=== PATIENT | male | born 1985 | race Caucasian/White ===

== ENCOUNTER 2020-08-01 09:48 | Emergency (ER) | payer OTHER ==
[~2020-08-01] VITALS: Ht 182.9 cm; Wt 97.5 kg
[2020-08-01] MEDS ORDERED: PAXIL30 MG PO (10:00)
[2020-08-01] MEDS ORDERED: TRAZODONE HCL50 MG PO (10:01)
[2020-08-01] MEDS ORDERED: NORCO 5-325 TA1 EACH PO (11:50)
--- NOTE | 2020-08-01 13:13 | EKG ---
[facility] [address] [facility] [place] [address] Signed Normal sinus rhythm Normal ECG No previous ECGs available Confirmed by KATERINE MARTINEZ MD ([id number]) on 08/01/2020 1:13:22 PM Electronically Signed By: KATERINE MARTINEZ MD 08/01/20 1313 PATIENT NAME: PAVAN ORTA Electrocardiogram DATE OF : 83 PHYSICIAN: KATERINE MARTINEZ MD REPORT #: [id number] REPORT IS CONFIDENTIAL AND NOT TO BE RELEASED WITHOUT AUTHORIZATION
== END 2020-08-01 12:12 | disposition home or self-care (01) ==
LOC: ED 09:48
DX: R55 Syncope and collapse (principal); S22.31XA Fracture of one rib, right side, initial encounter for closed fracture; X58.XXXA Exposure to other specified factors, initial encounter; Z87.891 Personal history of nicotine dependence; Z88.0 Allergy status to penicillin; Z79.899 Other long term (current) drug therapy
CPT/HCPCS: 71101; 93005; 93010; 99284-25